=== PATIENT | male | born 1985 | race Caucasian/White ===

== ENCOUNTER 2019-01-16 23:25 | Emergency (ER) | payer OTHER, SELFPAY ==
[2019-01-16 23:28] VITALS: BP 131/74; PULSE 85; RESP 16; TEMP 36.7; O2SAT 98; BMI 40.6
[2019-01-16 23:55] VITALS: BP 119/79; PULSE 93; RESP 20; O2SAT 96
[2019-01-17 00:44] VITALS: BP 138/97; PULSE 81; RESP 19; O2SAT 94
--- NOTE | 2019-01-17 01:23 | CT_ITS ---
HISTORY: BLOOD IN STOOL,NAUSEA,VOMITING,LOW ABDOMEN/PELVIC PAIN SINCE TUESDAY,ELEVATED WBC EXAMINATION: CT Abdomen And Pelvis W/ Contrast TECHNIQUE: Helically acquired images were obtained of the abdomen and pelvis following IV contrast. A radiation dose optimization technique was used for this scan. IV Contrast dosage and agent: 100ML Isovue 300 Oral contrast: Yes COMPARISON: None FINDINGS: Lower thorax: Clear. No pleural effusion or pericardial effusion. Normal liver, spleen, pancreas, gallbladder, and biliary system. Both kidneys are normal in position. Bilateral renal opacification without evidence of hydronephrosis, pyelonephritis, or suspicious renal lesion. Normal bilateral adrenal glands. Normal abdominal aorta and IVC. No ascites or retroperitoneal lymph node enlargement. GI tract: No obstruction. Diffuse mural thickening of the colon, greatest involving the right and transverse colon in keeping with nonspecific colitis. The colon shows increased fluid throughout in keeping with diarrhea. Normal appendix. No pericolonic inflammatory changes. Pelvis: Normal urinary bladder. No free fluid or lymph node enlargement. Bones: No acute osseous abnormality. Ventral abdominal Wall: Small fat-containing umbilical hernia. CT/Abdomen/Pelvis WITH Contrast IMPRESSION: 1. Nonspecific colitis with colonic mucosal thickening and increased colonic fluid in keeping with diarrhea. C. difficile colitis would be included in the differential. 2. No additional significant findings. No free fluid. Individualized dose optimization techniques were used for this CT. at 0348 Reported and signed by: Chandana Rosado MD Electronically Signed: Chandana Rosado, at 3:47 EDT Tel , Service support ,
[2019-01-17] MEDS: 0.9% Normal Saline 1,000 ML 1000 ML IV (01:29)
[2019-01-17] MEDS: Morphine 2 MG/ML Syringe IV (01:29)
[2019-01-17] MEDS: Ondansetron 4 MG/2 ML Vial IV (01:29)
[2019-01-17 01:30] LABS: Absolute Lymphocyte Count 1.39 X10^3/uL (0.83-4.51); Absolute Neutrophil Count 10.4 X10^3/uL (2.0-7.7); Basophil# 0.04 X10^3/uL; Basophil% 0.3 % (0-1); Eosinophil# 0.03 X10^3/uL; Eosinophils% 0.2 % (0-5); Hematocrit 47.7 % (40-54); Hemoglobin 17.2 g/dL (13.0-16.5); Lymphocyte # 1.39 X10^3/ul (4.0); Lymphocyte % 10.6 % (19-41); Mean Corp Hgb Conc 36.1 g/dL (32-36); Mean Corpuscular Hgb 30.8 pg (27.0-32.0); Mean Corpuscular Volume 85.3 fL (80-94); Mean Platelet Vol. 9.9 fl (6.2-12.0); Monocyte# 1.19 X10^3/uL; Monocyte% 9.1 % (0-10); NRBC Flagged by Analyzer 0 % (0-5); Neutrophil # 10.41 X10^3/uL (2.7-7.7); Neutrophil % 79.6 % (47-70); Platelet Count 290 K/mm3 (150-450); RBC Distribution Width CV 12.3 % (11.6-14.6); RBC Distribution Width SD 38.1 fl (35.1-43.9); Red Blood Count 5.59 M/mm3 (4.6-6.2); White Blood Count 13.1 K/mm3 (4.4-11.0)
[2019-01-17 01:42] LABS: AST(SGOT) 11 U/L (15-37); Alanine Aminotransfer ALT/SGPT 37 U/L (16-61); Albumin, Serum 3.8 g/dL (3.2-5.0); Alkaline Phosphatase 88 U/L (45-117); Anion Gap 6 (5-15); BUN 11 mg/dL (7-18); BUN/Creat Ratio 8.5 RATIO (10-20); Chloride 104 mmol/L (98-107); Creatinine, Serum 1.29 mg/dL (0.70-1.30); EST Glomerular Filtration Rate 68 mL/min (>60); Est Glom Filt Rate - Afr Amer 83 mL/min (>60); Estimated Creatinine Clearance 90.23 ml/min; Glucose 124 mg/dL (74-106); Lipase 86 U/L (73-393); Potassium 3.6 mmol/L (3.5-5.1); Protein, Total 7.8 g/dL (6.4-8.2); Sodium Level 137 mmol/L (136-145)
[2019-01-17 02:35] VITALS: PULSE 76; RESP 17; O2SAT 99
--- NOTE | 2019-01-17 03:40 | ED.DCSUM_ITS ---
- ER Visit Summary Date of Service: 01/17/19 Chief Complaint: Abdominal pain History of Present Illness: The patient is a 33 M presenting with abdominal pain, nausea, diarrhea. He states this started on Tuesday. He believes he may have food poisoning. He states he ate red hot dogs and this started following that meal on Tuesday. He has had blood in his stool. He has nausea with no vomiting. Denies urinary complaints. Denies fever. Denies other complaints. No recent antibiotics. No recent travel. No sick contacts. Physical Examination: Vitals are stable. Patient is afebrile. Alert no acute distress. HEENT exam is unremarkable. Neck is supple. Lungs are clear and equal bilaterally. Heart is regular rate and rhythm. Abdomen is soft mild diffuse tenderness with no rebound or guarding Rectal: Brown stool, no gross blood Extremities are unremarkable. Skin is warm and dry. Remainder of exam is unremarkable. Emergency Department Course and Treatment: Patient was given IV fluids, morphine, Zofran. CBC shows white count 13.1, hemoglobin 17.2. Chemistries show glucose 124. Liver lipase are normal. Stool guaiac positive. CT abdomen pelvis shows nonspecific colitis with colonic mucosal thickening and increased colonic fluid in keeping with diarrhea. C. difficile colitis would be included in the differential. No additional significant findings. No free fluid. Stool studies were sent. Patient was started on Cipro and Flagyl. On reevaluation, he is feeling improved. Advised to follow-up with his primary care physician. Advised to return the ED for worsening complaints. Disposition: Discharge home Impression: Diarrhea, colitis This note was generated with [employer] dictation software. It may contain incorrect words, spelling, and punctuation that were not noted in review of the chart prior to signing ED Disposition - Plan for ED Patient: Instructions: DIARRHEA, Unk Cause (Adult) Report Pendg Prescriptions: Ciprofloxacin [Cipro] 500 mg PO BID #14 tab Prescription Printed metroNIDAZOLE [Flagyl] 500 mg PO Q8H #21 tab Prescription Printed Referrals: Ignacia Coburn MD [Primary Care Provider] -
--- NOTE | 2019-01-17 04:04 | ED.DEP ---
ED Disposition - Plan for ED Patient: Instructions: DIARRHEA, Unk Cause (Adult) Report Pendg Prescriptions: Ciprofloxacin [Cipro] 500 mg PO BID #14 tablet metroNIDAZOLE [Flagyl] 500 mg PO Q8H #21 tablet Referrals: Ignacia Coburn MD [Primary Care Provider] -
[2019-01-17 04:08] VITALS: BP 155/100; PULSE 86; RESP 18; O2SAT 100
[2019-01-17] MEDS: Ciprofloxacin 500 MG Tablet PO (04:19)
[2019-01-17] MEDS: metroNIDAZOLE 500 MG Tablet PO (04:19)
--- NOTE | 2019-01-17 04:24 | ED.RN ---
BLOODY, WATERY STOOL COLLECTED AND SENT.
--- NOTE | 2019-01-17 17:48 | ED.RN ---
Pt returned call from [phone] regarding stool panel results. He verbalized doing fine and was informed of the positive results and understands the rx for home is appropriate care.
== END 2019-01-17 04:40 | disposition home or self-care (01) ==
PROVIDERS: Emergency Provider Emergency Medicine; Family Provider Internal Medicine; PCP Internal Medicine
DX: K52.9 Noninfective gastroenteritis and colitis, unspecified (principal)
CPT/HCPCS: 74177; 80053; 82274; 83690; 85025; 87493; 87506; 96361; 96374; 96375; 99285; J7030; Q9967; A4216; J2405

== ENCOUNTER 2023-06-05 13:15 | Emergency (ER) | payer BC, SELFPAY ==
[2023-06-05 13:17] VITALS: BP 136/98; PULSE 129; RESP 18; TEMP 39.4; O2SAT 98; BMI 47.5
--- NOTE | 2023-06-05 13:23 | EDS_ITS ---
HPI History of Present Illness Chief Complaint: General Illness PFSH PFS Medical History no medical history Home Medications ciprofloxacin HCl 500 mg tablet 500 mg PO BID #14 tabs 01/17/19 [Rx Last Taken Unknown] metronidazole 500 mg tablet 500 mg PO Q8H #21 tabs 01/17/19 [Rx Last Taken Unknown] Allergy/AdvReac Type Severity Reaction Status Date / Time No Known Allergies Allergy Verified 06/05/23 13:18 Social History Smoking Status: Never smoker EXAM Physical Exam Const Vital Signs: 06/05/23 13:17 06/05/23 13:37 06/05/23 14:58 Temperature 102.9 F H 99.4 F H Temperature Source Oral Oral Pulse Rate 129 H 96 Respiratory Rate 18 14 Respiratory Effort Normal Non-Labored Respiratory Pattern Normal Blood Pressure 136/98 H 147/97 H Blood Pressure Mean 110 113 Pulse Ox 98 99 Oxygen Delivery Method Room Air Room Air MDM MDM MDM Narrative Medical decision making narrative: HISTORY OF PRESENT ILLNESS: 37-year-old male notes 3 days of cough congestion shortness of breath. The patient denies recent surgery in the last 4 weeks or immobilization in the last 3 days, denies previous diagnosis of DVT or PE, hemoptysis, unilateral leg swelling or malignancy with treatment the last 6 months or palliative. No estrogen use noted. REVIEW OF SYSTEMS: Pertinent positives: Cough, congestion, shortness of breath Pertinent negatives: Chest pain, leg swelling PHYSICAL EXAM: Nursing triage notes reviewed, Vital signs reviewed Constitutional: please see mdm HENT: MMM Eyes: Pupils equal round and reactive to light, Extraocular muscles intact Neck: No stridor, no JVD, full neck ROM Lungs: Clear to auscultation, No wheezing or rales. No increased work of breathing, no conversational dyspnea, no accessory muscle use, no nasal flaring. No respiratory distress noted Heart: Regular rate and rhythm, No murmurs, No rubs and No gallops, 2+ distal pulses (radial, femoral, posterior tibial) in all extremities Abdomen: Soft, there is no tenderness, rigidity, rebound or guarding, no obvious peritoneal signs, no palpable pulsatile abdominal masses, no auscultated abdominal bruit : No CVAT Extremities: No edema Neuro: No focal neurological deficits, cranial nerves II through XII intact, 5/5 strength in all extremities. Intact sensation to light touch in all extremities, 2+ reflexes bilateral patella tendons. Normal gait. No ataxia. Skin: No rash or lesions noted MEDICAL DECISION MAKING: Chief Complaint: Cough, congestion, shortness of breath External records reviewed: No recent adVanced imaging of the chest Factors affecting care: none Social determinants of health: none History obtained from others: none Consults: none MDM Narrative: Patient was initially tachycardic, febrile, otherwise not hypoxic with no increased work of breathing. Exam without obvious airway compromise, increased work of breathing or need for noninvasive or invasive ventilation. I considered the following differential diagnosis: COVID, flu, RSV ALL IMAGES (IF OBTAINED) HAVE BEEN PERSONALLY REVIEWED AND INTERPRETED BY MYSELF. I have personally reviewed the patient's chest x-ray. Chest x-ray is unremarkable for pulmonary edema, pneumothorax, pneumonia or focal cardiopulmonary abnormality. COVID and flu are negative The synthesis of the patient's history, physical exam, labs images suggest no acute life-threatening etiology. My suspicion is the patient suffered from a viral URI. He was given Tylenol ibuprofen with tachycardia, fever. No indication for admission or further care in the ED. Gave strict return precaution and follow-up instructions. The patient and/or family, caregivers express understanding. The patient and/or family, caregivers agrees with the plan. Shared decision making: I will have a discussion with the patient and or visitors regarding risk/benefits of further testing or admission. They will be made aware of of the risk/benefits inherent in this decision they will be given the opportunity to voice understanding. Total critical care time today provided was at least 0 minutes. This excludes separately billable procedures. Critical care time (if documented) is secondary to the patient having high probability of clinically significant/life threatening deterioration in the patient's condition which required my urgent intervention. Impression: 1. Viral URI cough 2. Fever (resolved) 3. Tachycardia (resolved) Dispo: Discharge home Radiography Diagnostic Testing: Clinical Impression(s) from Imaging Studies Chest X-Ray 06/05/23 14:00 IMPRESSION: Normal x-ray examination of the chest. Electronically Signed: Wilian Jain MD at 14:44 EST , Discharge Plan Triage Chief Complaint: General Illness ED Provider: Berry Bartholomew Dx/Rx/DC Orders Instructions: ED URI, Viral, No Abx (Adult) Prescriptions: No Action metronidazole 500 MG tablet 500 mg PO Q8H Qty: 21 0RF ciprofloxacin HCl 500 MG tablet 500 mg PO BID Qty: 14 0RF Primary Care Provider: Ignacia Coburn Referrals: Genaro Damon MD [Med Staff - Data Analytics Specialist] - Activity Restrictions/Additional Instructions: Thank you for trusting us with your care today! Please take Tylenol (2 pills, 650 mg), ibuprofen (2 pills, 400 mg) every 6 hours as needed for pain and fever control. Please return to the emergency department if your symptoms change or worsen. Specifically if develop nausea and vomiting cannot tolerate medicine by mouth or if develop worsening chest pain or shortness of breath. Please follow with your primary care physician for further outpatient evaluation and management. Disposition Disposition: Home, Self Care Discharge Date/Time: 06/05/23 15:25
[2023-06-05] MEDS: Acetaminophen 325 MG Tablet 650 MG PO (13:52)
[2023-06-05] MEDS: Ibuprofen 200 MG Tablet 400 MG PO (13:52)
--- NOTE | 2023-06-05 14:00 | RAD_ITS ---
STUDY: X-RAY CHEST REASON FOR EXAM: Male, 37 years old. SOB TECHNIQUE: PA and lateral views of the chest. COMPARISON: None. FINDINGS: The lungs are clear and expanded. There is no demonstrated pleural abnormality. Normal size heart. Normal mediastinum and shelby. Normal visualized pulmonary arteries. Normal visualized aortic arch and descending thoracic aorta. Normal visualized thoracic spine. Normal visualized ribs, clavicles, and shoulders. There is no demonstrated abnormality of the visualized soft tissue structures of the upper abdomen. RAD/Chest PA and Lateral IMPRESSION: Normal x-ray examination of the chest. Electronically Signed: Wilian Jain MD at 14:44 EST ,
[2023-06-05 14:58] VITALS: BP 147/97; PULSE 96; RESP 14; TEMP 37.4; O2SAT 99
== END 2023-06-05 15:25 | disposition home or self-care (01) ==
PROVIDERS: Emergency Provider Emergency Medicine; PCP Internal Medicine; Visit Provider Emergency Medicine
DX: J06.9 Acute upper respiratory infection, unspecified (principal); R06.02 Shortness of breath; Z11.52 Encounter for screening for COVID-19
CPT/HCPCS: 71046; 87428; 99283